=== PATIENT | female | born 1975 | race Hispanic/Latino ===

== ENCOUNTER 2020-08-18 06:03 | Day surgery (SDC) | payer OTHER ==
[2020-08-10 16:57] LABS: BASOPHILS % (AUTO) 0.5 % (0.0-5.0); EOSINOPHILS % (AUTO) 3.5 % (0.0-8.0); HEMATOCRIT 28.7 % (36-48); LYMPHOCYTES % (AUTO) 20.7 % (21.0-51.0); MEAN CORPUSCULAR HEMOGLOBIN 24.9 pg (27.0-33.0); MEAN CORPUSCULAR HGB CONC 28.9 g/dL (32.0-36.0); MEAN CORPUSCULAR VOLUME 85.9 fL (79-99); MONOCYTES % (AUTO) 7.7 % (3.0-13.0); NEUTROPHILS % (AUTO) 67.4 % (40.0-77.0); PLATELET COUNT (AUTO) 300 K/uL (130-400); RED BLOOD CELL COUNT(AUTO) 3.34 MIL/uL (4.00-5.50); RED CELL DISTRIBUTION WIDTH 17.9 % (11.0-15.5); WHITE BLOOD COUNT (AUTO) 8.6 K/uL (4.8-10.8)
[2020-08-17 09:09] VITALS: BP 155/80
[2020-08-18] VITALS (19 sets, daily range): BP systolic 100–154; BP diastolic 69–83
[~2020-08-18] VITALS: Ht 170.2 cm; Wt 107.3 kg
[2020-08-18] MEDS: CEFAZOLIN SODIUM 1 GM VIAL IVP SCH ×2 (05:00→09:37)
[~2020-08-18 06:03] MED LIST: BIOT10004 PO; ERGO500014 PO; FERR-82 PO; MEGE40TA8 PO; MONT10TA21 PO; VITAD50000 PO; ZINC50TA64 PO; [UNRECOGNIZED DRUG - CODE] PO
[2020-08-18] MEDS ORDERED: LACTATED RINGERS 1000ML 1,000 ML IV ONE (06:34)
[2020-08-18] MEDS ORDERED: PHENAZOPYRIDINE HCL 200 MG TABLET ONE (06:35)
[2020-08-18] MEDS ORDERED: BUPIVACAINE/PF 0.25% 30ML VIAL IJ ONE (06:53)
[2020-08-18] MEDS ORDERED: METRONIDAZOLE 500MG/100ML BAG 100 ML ONE (06:59)
[2020-08-18] MEDS ORDERED: DEXAMETHASONE SOD PHOSPHATE 10MG/ML 1ML VIAL ONE (07:05)
[2020-08-18] MEDS ORDERED: LIDOCAINE PF 2% 5ML ABBOJECT ONE (07:05)
[2020-08-18] MEDS ORDERED: SUCCINYLCHOLINE 200MG/10ML SYR ONE (07:05)
[2020-08-18] MEDS ORDERED: MIDAZOLAM HCL 1 MG/ML 2ML VIAL ONE ×2 (07:06→07:57)
[2020-08-18] MEDS ORDERED: GLYCOPYRROLATE 1 MG/5 ML SYRINGE ONE (07:06)
[2020-08-18] MEDS ORDERED: ONDANSETRON HCL 4 MG/2 ML VIAL ONE (07:06)
[2020-08-18] MEDS ORDERED: PROPOFOL 10 MG/ML 20ML VIAL IV ONE ×2 (07:06→11:07)
[2020-08-18] MEDS ORDERED: NEOSTIGMINE 5MG/5ML SYR IV ONE (07:06)
[2020-08-18] MEDS ORDERED: ROCURONIUM 10MG/1ML SYR 10 MG/ML ML ONE ×2 (07:06→08:33)
[2020-08-18] MEDS ORDERED: FENTANYL CITRATE PF 50 MCG/1 ML 2ML VIAL ONE ×4 (07:07→11:34)
[2020-08-18] MEDS ORDERED: FENTANYL CITRATE PF 50 MCG/1 ML 5ML AMP IV ONE (08:37)
[2020-08-18] MEDS ORDERED: PHENYLEPHRINE HCL 10 MG/ML 1ML VIAL IV ONE (08:44)
[2020-08-18] MEDS ORDERED: METHYLENE BLUE 5 MG/ML AMP ONE ×2 (10:37→10:41)
[2020-08-18] MEDS ORDERED: FENTANYL CITRATE PF 50 MCG/1 ML 20ML VIAL IJ ONE (11:16)
[2020-08-18] MEDS ORDERED: KETOROLAC TROMETHAMINE 30MG/ML ONE (11:50)
[2020-08-18] MEDS ORDERED: ENOXAPARIN SODIUM 30 MG/0.3 ML SQ ONE (11:59)
[2020-08-18] MEDS ORDERED: MEPERIDINE-PF 25 MG/ML SYG ONE ×2 (12:10→12:22)
[2020-08-18 12:13] LABS: HEMATOCRIT 30.5 % (36-48)
[2020-08-18] MEDS ORDERED: ONDANSETRON HCL 4 MG/2 ML VIAL IVP PRN (13:15)
[2020-08-18] MEDS ORDERED: ACETAMINOPHEN 325 MG TAB PO PRN ×2 (13:15)
[2020-08-18] MEDS ORDERED: MORPHINE SULFATE 5 MG/ML VIAL IM PRN (13:15)
[2020-08-18] MEDS ORDERED: KETOROLAC TROMETHAMINE 30MG/ML IV PRN (13:15)
[2020-08-18] MEDS ORDERED: SODIUM CHLORIDE 0.9% 1000ML 1,000 ML IV SCH (13:15)
[2020-08-18 14:15] LABS: HEMATOCRIT 29.6 % (36-48)
== END 2020-08-18 17:13 | disposition home or self-care (01) ==
LOC: DAH 06:03
PROVIDERS: ATTEND Obstetrics & Gynecology
DX: N92.0 Excessive and frequent menstruation with regular cycle (principal); Z20.822 Contact with and (suspected) exposure to COVID-19; N72 Inflammatory disease of cervix uteri; N87.9 Dysplasia of cervix uteri, unspecified; N80.0 Endometriosis of uterus; D26.1 Other benign neoplasm of corpus uteri; K66.0 Peritoneal adhesions (postprocedural) (postinfection); E66.9 Obesity, unspecified; D50.0 Iron deficiency anemia secondary to blood loss (chronic); Z68.36 Body mass index [BMI] 36.0-36.9, adult; Z79.899 Other long term (current) drug therapy; Z98.890 Other specified postprocedural states
CPT/HCPCS: 58573; S2900; 36415; 84703; 85014; 85018; 85025; 86850; 86900; 86901; 86923; A4344; C9803; J0330; J0690; J1100; J1650; J1885; J2001; J2175; J2250; J2370; J2405; J2704; J2710; J3010; J3490; J7030; J7120; Q9968; U0003

== ENCOUNTER 2024-07-01 19:03 | Emergency (ER) | payer OTHER ==
[~2024-07-01] VITALS: Ht 170.2 cm; Wt 108.9 kg
[~2024-07-01 19:03] MED LIST changes: -ERGO500014 PO; +ERGO500093 PO; -MEGE40TA8 PO; +MONT-46 PO; -MONT10TA21 PO
[2024-07-01 19:13] VITALS: TEMP 98.4
[2024-07-01 20:24] LABS: BASOPHILS # (AUTO) 0.04 K/uL (0.00-0.20); BASOPHILS % (AUTO) 0.5 % (0.0-5.0); EOSINOPHILS # (AUTO) 0.41 K/uL (0.00-0.70); EOSINOPHILS % (AUTO) 4.7 % (0.0-8.0); HEMATOCRIT 40.5 % (36-48); IMMATURE GRANULOCYTE ABSOLUTE 0.02 K/uL (0-1); LYMPHOCYTES # (AUTO) 1.8 K/uL (1.0-4.8); LYMPHOCYTES % (AUTO) 19.9 % (21.0-51.0); MEAN CORPUSCULAR HEMOGLOBIN 28.3 pg (27.0-33.0); MEAN CORPUSCULAR HGB CONC 32.6 g/dL (32.0-36.0); MEAN CORPUSCULAR VOLUME 86.7 fL (79-99); MONOCYTES # (AUTO) 0.6 K/uL (0.1-1.0); MONOCYTES % (AUTO) 6.7 % (3.0-13.0); PLATELET COUNT (AUTO) 227 K/uL (130-400); RED BLOOD CELL COUNT(AUTO) 4.67 MIL/uL (4.00-5.50); WHITE BLOOD COUNT (AUTO) 8.8 K/uL (4.8-10.8)
--- NOTE | 2024-07-01 20:28 | HMCIMG ---
PORTABLE CHEST RADIOGRAPH INDICATION: CHEST PAIN COMPARISON: None FINDINGS: Heart size is normal. The pulmonary vascularity and sean appear normal. No abnormal pulmonary parenchymal opacity or consolidation identified. No significant pleural effusion noted. No pneumothorax detected. IMPRESSION: No radiographic evidence for any acute cardiopulmonary process.
[2024-07-01 20:35] LABS: CREATININE 0.7 mg/dL (0.5-1.0); POTASSIUM 4.1 mmol/L (3.5-5.1)
[2024-07-01 20:46] LABS: B-TYPE NATRIURETIC PEPTIDE < 5 pg/mL (0-100)
[2024-07-01] MEDS: PANTOPrazole 40 MG/VIAL IVP ONE (21:24)
[2024-07-01] MEDS: ASPIRIN 325MG TAB PO ONE (21:25)
--- NOTE | 2024-07-01 21:54 | ERN ---
ED Note History of Present Illness Stated Complaint: FLANK PAIN Chief Complaint: Chest Pain Time Seen by MD: 19:10 Time Seen by Midlevel: 19:10 Dictation: Patient is a 49-year-old female with a history of complete thyroidectomy who presents to the emergency department with complaints of chest pain onset 4:00 p.m. radiating to her left arm. Patient denies any cough, fevers, shortness of breath. Reports she took a Tums and relieved her pain but then her pain came back. Allergies: Coded Allergies: No Known Drug Allergies (Verified Allergy, Unknown, 08/11/20) Home Meds Reported Medications Vitamin B Complex (Complex B-100) 1 Each Tablet.er, 1 EACH PO HS, TAB 08/17/20 Biotin (Biotin) 1,000 Mcg Tab.chew, 1000 MCG PO HS, TAB.CHEW 08/17/20 Ferrous Sulfate (Iron) 325 Mg Tablet, 325 MG PO BID, TAB 08/17/20 Cholecalciferol (Vitamin D3) 50,000 Units Cap, 2000 UNITS PO HS, CAP 08/17/20 Zinc Amino Acid Chelate (Zinc) 50 Mg Tablet, 50 MG PO HS, TAB 08/17/20 Montelukast Sodium (Singulair 10Mg) 10 Mg Tab, 10 MG PO HS, TAB 08/17/20 Ergocalciferol (Vitamin D2) (Vitamin D2) 1,250 Mcg Capsule, 1250 MCG PO QWEEK, CAP 08/17/20 Past Medical History Past Medical History: Other Additional Past Medical Hx: THYROID DISEASE Surgical History: Hysterectomy, Other Surgical History Other: THYROIDECTOMY RN Note Reviewed/Agreed w/PFSH: Yes Review of System Dictation Constitutional: Negative for fever,chills, and weight loss Eyes: Negative for injury, pain,redness, and discharge ENT: Negative for injury,pain or swelling Cardiovascular: Negative for palpitations, and edema positive for chest pain Respiratory: Negative for shortness of breath, cough, and wheezing, Abdomen/GI: Negative for abdominal pain, nausea, vomiting, diarrhea, and constipation Back: Negative for injury and pain : Negative for injury, bleeding and discharge MS/Extremity: Negative for injury and deformity Skin: Negative for rash, and discoloration Neuro: Negative for headache, weakness, numbness, tingling, and seizure Psych: Negative for suicide ideation, homicidal ideation, and hallucinations Initial Vital Sign VS Vital Signs Date Time Temp Pulse Resp B/P (MAP) Pulse Ox O2 Delivery O2 Flow Rate FiO2 07/01/24 19:13 98.4 100 18 168/100 99 0 07/01/24 21:15 Room Air* 21 Physical Exam Dictation Vital Signs reviewed General Appearance: Alert, oriented x 3, no acute distress, well developed, nourished. Head and Face: non-traumatic. Eyes: PERRL, pink conjunctivas, eyelid no trauma, anterior chamber with arcus senilis. Ears: Pinnas intact and no signs of trauma or erythema ear canals clear and no discharge TM no erythema Nose: No discharge, no bleeding. Oropharynx: Mouth normal, tongue pink. pharynx clear,no erythema, tonsils no exudates, no abscesses noted, mucous membrane moist Neck: Supple, non-tender, no thyromegaly, no masses, no JVD, no bruits Breast:Deferred Chest:No tenderness, no crepitus, no paradoxical movement, no retractions Lungs:Clear, well-ventilated, symmetric, no rales, no wheezing, no rhonchi, no stridor, good breath sounds bilaterally Heart: Regular rate, regular rhythm, no murmur, no gallops Vascular: no peripheral edema, Abdomen: Soft, positive bowel sounds, nondistended, no guarding, nontender, no rebound, no masses no hepatomegaly, no splenomegaly, no Durbin's sign, no hernias. Rectal: Deferred Genital: Deferred Neurological: Normal speech, motor function intact, sensory function intact Musculoskeletal: Neck nontender, full range of motion, back nontender, full range of motion, Extremities: nontender, full range of motion Skin: Color pink, dry, no turgor, no rash, no lacerations, no abrasions, no contusions. Lymphatic: Deferred Results (Laboratory/Radiology) Laboratory/Radiology Laboratory Tests Test 07/01/24 20:05 07/01/24 21:05 07/01/24 21:48 07/01/24 22:05 White Blood Count 8.8 K/uL (4.8-10.8) Red Blood Count 4.67 MIL/uL (4.00-5.50) Hemoglobin 13.2 g/dL (12.0-16.0) Hematocrit 40.5 % (36-48) Mean Corpuscular Volume 86.7 fL (79-99) Mean Corpuscular Hemoglobin 28.3 pg (27.0-33.0) Mean Corpuscular Hemoglobin Concent 32.6 g/dL (32.0-36.0) Red Cell Distribution Width 13.0 % (11.0-15.5) Platelet Count 227 K/uL (130-400) Mean Platelet Volume 11.7 fL (7.5-10.5) H Immature Granulocyte % (Auto) 0.2 % (0-1) Neutrophils (%) (Auto) 68.0 % (40.0-77.0) Lymphocytes (%) (Auto) 19.9 % (21.0-51.0) L Monocytes (%) (Auto) 6.7 % (3.0-13.0) Eosinophils (%) (Auto) 4.7 % (0.0-8.0) Basophils (%) (Auto) 0.5 % (0.0-5.0) Neutrophils # (Auto) 6.0 K/uL (1.8-7.7) Lymphocytes # (Auto) 1.8 K/uL (1.0-4.8) Monocytes # (Auto) 0.6 K/uL (0.1-1.0) Eosinophils # (Auto) 0.41 K/uL (0.00-0.70) Basophils # (Auto) 0.04 K/uL (0.00-0.20) Absolute Immature Granulocyte (auto 0.02 K/uL (0-1) Nucleated Red Blood Cells 0.0 % (0.0-0.19) Sodium Level 141 mmol/L (136-145) Potassium Level 4.1 mmol/L (3.5-5.1) Chloride Level 104 mmol/L (101-111) Carbon Dioxide Level 32 mmol/L (21-32) Blood Urea Nitrogen 11 mg/dL (7-18) Creatinine 0.7 mg/dL (0.5-1.0) Glomerular Filtration Rate Calc 107 mL/min (>90) Random Glucose 99 mg/dL (70-105) Total Calcium 9.4 mg/dL (8.5-10.1) Total Creatine Kinase 116 U/L (21-232) Troponin I High Sensitivity 4 ng/L (4-50) 5 ng/L (4-50) B-Type Natriuretic Peptide < 5 pg/mL (0-100) Lipase 53 U/L (16-77) Troponin I < 0.05 ng/mL (0.00-0.05) Urine Color COLORLESS (YELLOW) Urine Appearance CLEAR (CLEAR) Urine pH 7.0 (5.0-8.0) Urine Specific [place] 1.007 (1.001-1.031) Urine Protein NEGATIVE mg/dL (NEGATIVE) Urine Glucose (UA) NEGATIVE mg/dL (NEGATIVE) Urine Ketones NEGATIVE mg/dL (NEGATIVE) Urine Occult Blood NEGATIVE (NEGATIVE) Urine Nitrate NEGATIVE (NEGATIVE) Urine Bilirubin NEGATIVE mg/dL (NEGATIVE) Urine Urobilinogen 0.2 mg/dL (0.2-1.0) Urine Leukocyte Esterase NEGATIVE Eduardo/uL Urine RBC 0-1 /HPF (0-1) Urine WBC 2-5 /HPF (0-1) H Urine Squamous Epithelial Cells RARE /HPF (0-2) Urine Bacteria None /HPF (None Seen) REASON: CHEST PAIN ORDERING PHYSICIAN: JAISON MIRANDA MD PROCEDURE: CXR1VW - CHEST 1VW PORTABLE CHEST RADIOGRAPH INDICATION: CHEST PAIN COMPARISON: None FINDINGS: Heart size is normal. The pulmonary vascularity and sean appear normal. No abnormal pulmonary parenchymal opacity or consolidation identified. No significant pleural effusion noted. No pneumothorax detected. IMPRESSION: No radiographic evidence for any acute cardiopulmonary process. Labs Reviewed?: Yes EKG: (+) rhythm EKG Comment: EKG 07/01/2024 ventricular rate 99, regular rate and rhythm, normal sinus rhythm, no STEMI ED Course ED Course Orders Procedure Category Date Status Time Vital Signs Per CPOE 07/01/24 Transmitted Routine 19:17 B-Type Natriuretic LAB 07/01/24 Complete Peptide 19:17 Chest 1vw RAD 07/01/24 Resulted 19:17 12 Lead Ekg Tracing- EKG 07/01/24 Logged Technical 19:17 Oxygen By Nc/Pulse Ox CPOE 07/01/24 Transmitted 19:17 Maintain Iv CPOE 07/01/24 Transmitted 19:17 Iv Insertion CPOE 07/01/24 Transmitted 19:17 Cardiac Monitoring CPOE 07/01/24 Transmitted 19:17 Pulse Oximetry With CPOE 07/01/24 Transmitted Vs And Prn 19:17 Cbc With Differential LAB 07/01/24 Complete 19:17 Activity: Br W/Brp CPOE 07/01/24 Transmitted With Assist 19:17 Creatine Kinase, Total LAB 07/01/24 Complete 19:17 Urinalysis Profile LAB 07/01/24 Complete 19:17 Troponin Poc Order LAB 07/01/24 Complete Only 19:17 Bedside Troponin-I LAB.ER 07/01/24 In Process (Poc) 19:17 Basic Metabolic Panel LAB 07/01/24 Complete 19:17 Troponin I High LAB 07/01/24 Complete Sensitivity 19:34 Pantoprazole 40mg Inj PHA 07/01/24 Complete (Protonix 40mg Inj 20:00 Aspirin 325mg Tab PHA 07/01/24 Complete (Aspirin 325mg Tab) 20:00 Lipase LAB 07/01/24 Complete 19:17 Troponin I High LAB 07/01/24 Complete Sensitivity 21:01 Current Medications Medications (Trade) Dose Ordered Sig/Michelle Route PRN Reason Start Time Stop Time Status Last Admin Dose Admin Aspirin (Aspirin 325mg Tab) 325 mg ONCE ONCE PO 07/01/24 20:00 07/01/24 20:01 DC 07/01/24 21:25 Pantoprazole Sodium (PROTonix 40MG INJ) 40 mg ONCE ONCE IVP 07/01/24 20:00 07/01/24 20:01 DC 07/01/24 21:24 Vital Signs Date Time Temp Pulse Resp B/P (MAP) Pulse Ox O2 Delivery O2 Flow Rate FiO2 07/01/24 21:15 79 17 173/96 99 Room Air* 0 21 07/01/24 19:13 98.4 100 18 168/100 99 0 HEART Score Response (Comments) Value History: Low suspicion (0) 0 EKG: Normal 0 Age: 45-65yrs (+1) 1 Risk Factors: No known risk factors (0) 0 Initial Troponin: Normal limit (0) 0 HEART Score Risk: Low Risk for MACE (1-3) Total 1 Medical Decision Making MDM Patient is a 49-year-old female with a history of complete thyroidectomy who presents to the emergency department with complaints of chest pain onset 4:00 p.m. radiating to her left arm. Patient denies any cough, fevers, shortness of breath. Reports she took a Tums and relieved her pain but then her pain came back. CBC showed no leukocytosis, no anemia, chemistry showed no electrolyte imbalance, negative troponin x3, negative lipase, x-ray unremarkable, EKG sinus rhythm. Patient reports relief of chest pain with Protonix. Patient instructed to follow up with primary doctor and to return if symptoms worsen. Patient agrees with discharge planning. Differential diagnosis: ACS, gastritis, pancreatitis, dehydration, electrolyte imbalance, anxiety Need for hospitalization: Patient does not meet criteria for hospitalization. There are no social concerns with this patient. DX & DISP Disposition: Discharge Departure Impression: Primary Impression: Chest pain Additional Impressions: Chest pain with low risk for cardiac etiology, Gastritis, Anxiety Condition: Stable Scripts Hydroxyzine HCl (Hydroxyzine HCl) 25 Mg Tablet 1 TAB PO TID for anxiety for 10 Days, #30 TAB 0 Refills Prov: LEONEL BOND 07/01/24 Pantoprazole Sodium (Pantoprazole Sodium) 20 Mg Tablet.dr 1 TAB PO DAILY for 30 Days, #30 TAB 0 Refills Prov: LEONEL BOND 07/01/24 Additional Instructions: Please follow up with your primary doctor in 1-2 days. Please return to ER if symptoms worsen. FOLLOW-UP WITH PRIMARY CARE PROVIDER IN 1 TO 2 DAYS. TAKE MEDICATIONS DIRECTED HERE IN THE EMERGENCY ROOM. OKAY TO CONTINUE HOME MEDICATIONS UNLESS OTHERWISE DISCUSSED DURING YOUR VISIT IN THE EMERGENCY ROOM TODAY. RETURN TO YOUR NEAREST EMERGENCY ROOM IF SYMPTOMS WORSEN OR IF THERE IS NO IMPROVEMENT. CALL 911 IF YOU NEED IMMEDIATE ASSISTANCE. TAKE TYLENOL OR MOTRIN OVER-THE-CO UNTER NEEDED AND IF NO CONTRAINDICATIONS ARE PRESENT. INCREASE ORAL HYDRATION. A WOUND CULTURE OR URINE CULTURE WAS ORDERED HERE IN THE EMERGENCY ROOM DEPARTMENT PLEASE FOLLOW-UP WITH PRIMARY CARE PROVIDER AND ADVISE THEM TO GET REPEAT PORTS FROM OUR FACILITY. IF YOU HAD ANY ANAMIKA WRAP/SPLINTS THAT WERE APPLIED HERE, PLEASE DO NOT REMOVE THEM UNTIL YOU SEE YOUR PRIMARY CARE OR SPECIALTY. Referrals: [facility] (PCP) Time of Disposition: 22:43 I have reviewed the case, and I agree with, Diagnosis and Plan LEONEL BOND Jul 01, 2024 21:54
[2024-07-01 21:56] LABS: APPEARANCE,URINE CLEAR (CLEAR); BILIRUBIN,URINE NEGATIVE (NEGATIVE); COLOR,URINE COLORLESS (YELLOW); GLUCOSE, URINE (UA) NEGATIVE (NEGATIVE); KETONES,URINE NEGATIVE (NEGATIVE); LEUKOCYTE ESTERASE ,URINE NEGATIVE Leu/uL (NEGATIVE); NITRATE,URINE NEGATIVE (NEGATIVE); OCCULT BLOOD,URINE NEGATIVE (NEGATIVE); PROTEIN,URINE NEGATIVE (NEGATIVE); UROBILINOGEN,URINE 0.2 mg/dL (0.2-1.0)
[2024-07-01 21:59] LABS: ADD UA MICROSCOPIC YES
[2024-07-01 22:01] LABS: RBC,URINE 0-1 /HPF (0-1); SQUAMOUS EPITHELIAL CELL,UR RARE /HPF (0-2)
[2024-07-01] MEDS ORDERED: PANT20TA18 PO (22:45)
[2024-07-01] MEDS ORDERED: HYDR-3421 PO (22:45)
--- NOTE | 2024-07-01 23:59 | NUR ---
PER REGULATORY COMPLIANCE COORDINATOR NEEL PT IS OKAY TO DISCHARGE AT THIS TIME
[2024-07-02 00:06] VITALS: BP 151/88; PULSE 72; RESP 18; O2SAT 97
--- NOTE | 2024-07-02 06:20 | EKG ---
[facility] Test Date: 2024-07-01 Test Time: 19:10:51 Pat Name: BRYAN FLORINDA MCCRACKEN Department: [facility] Room: Gender: Female Documentation Improvement Specialist: [id number] [phone] [id number] Requested By: JAISON MIRANDA Order Number: [id number] Reading MD: Measurements Intervals [place] Rate: 99 P: 53 LA: 137 QRS: 21 QRSD: 102 T: 21 QT: 358 QTc: 461 Interpretive Statements Sinus rhythm No previous ECG available for comparison Please click the below link to view image of tracing.
== END 2024-07-02 00:07 | disposition home or self-care (01) ==
LOC: EDH 19:03
DX: R07.89 Other chest pain (principal); K29.70 Gastritis, unspecified, without bleeding; F41.9 Anxiety disorder, unspecified; Z79.899 Other long term (current) drug therapy; Z90.710 Acquired absence of both cervix and uterus; Z98.890 Other specified postprocedural states
CPT/HCPCS: 99285; 96374; 71045; 82550; 84484 ×3; 80048; 83880; 83690; 85025; 81001; 36415; 93005; J2470

== ENCOUNTER → 2024-07-12 | Outpatient (CLI) | payer OTHER ==
[~2024-07-12] MED LIST changes: +HYDR-3421 PO; +PANT20TA18 PO
--- NOTE | 2024-07-12 14:50 | HMCIMG ---
US PELVIC NON-OB COMP HISTORY: Abdominal pain COMPARISON: None TECHNIQUE: Transabdominal pelvic ultrasound study was performed. FINDINGS: The uterus has been removed. Flow is seen in both ovaries. The right ovary measures 1.4 x 1 x 1.1 cm. The left ovary measures 1.3 x 0.8 x 2 cm. No free fluid is seen in the cul-de-sac. IMPRESSION: 1. No adnexal mass is seen.
--- NOTE | 2024-07-15 11:25 | HMCIMG ---
MAMMO SCREENING BILATERAL HISTORY: Screening mammogram. COMPARISON: 05/27/2023 TECHNIQUE: Bilateral screening mammogram with CAD was performed with craniocaudal and mediolateral oblique projections. FINDINGS: There are scattered areas of fibroglandular density. There is no evidence of a dominant mass, or suspicious microcalcification. There is no evidence of nipple retraction or skin thickening. IMPRESSION: 1. Stable mammogram. Patient was entered into a reminder system with a target due date for their next mammogram. BI-RADS: CATEGORY 2: BENIGN FINDINGS Recommend monthly self breast exam as well as annual clinical examination. A negative x-ray should not delay biopsy if a dominant or clinically suspicious mass is present, since 8-10% of cancers are not identified by mammography. Dense breasts particularly, may obscure an underlying neoplasm. Some of these may be detected clinically and therefore, clinical examination is an essential part of breast evaluation.
== END | disposition home or self-care (01) ==
LOC: RAH 13:16
PROVIDERS: ATTEND Nurse Practitioner Adult Health
DX: Z12.31 Encounter for screening mammogram for malignant neoplasm of breast (principal); R10.30 Lower abdominal pain, unspecified
CPT/HCPCS: 76856; 77067

== ENCOUNTER → 2024-08-05 | Outpatient (CLI) | payer OTHER | END | disposition home or self-care (01) | LOC: RAH 13:08 | PROVIDERS: ATTEND Nurse Practitioner Adult Health | DX: Z13.6 Encounter for screening for cardiovascular disorders (principal) | CPT/HCPCS: 75571 ==